=== PATIENT | male | born 1970 | race Caucasian/White ===

== ENCOUNTER 2017-01-27 00:02 | Emergency (ER) | payer OTHER ==
[2017-01-27] MEDS ORDERED: NO HOME MEDICATION XX (00:28)
[2017-01-27] MEDS ORDERED: VALIUM5 M1 PO (00:32)
[2017-01-27] MEDS ORDERED: NORCO 5/3251 TAB PO (00:32)
== END 2017-01-27 01:03 ==
LOC: EDMED 00:02
DX: S39.012A Strain of muscle, fascia and tendon of lower back, initial encounter (principal); X58.XXXA Exposure to other specified factors, initial encounter